=== PATIENT | female | born 1965 | race Caucasian/White ===

== ENCOUNTER 2020-02-17 16:16 | Inpatient (IN) | payer MEDICAID ==
[~2020-02-17] VITALS: Ht 154.9 cm; Wt 91.3 kg
[~2020-02-17 16:16] MED LIST: MORP20CA18 PO; OXYC10TA59 PO
[2020-02-17 16:59] LABS: BASOPHILS % (AUTO) 0.5 % (0.0-2.0); EOSINOPHILS % (AUTO) 1.7 % (1.0-6.0); HEMATOCRIT 42.8 % (36-46); HEMOGLOBIN 14.4 g/dL (12.0-16.0); LYMPHOCYTES # (AUTO) 2.8 K/uL (1.0-4.8); LYMPHOCYTES % (AUTO) 39.9 % (22.0-44.0); MEAN CORPUSCULAR HGB CONC 33.6 G/dL (31.0-37.0); MEAN CORPUSCULAR VOLUME 89 fL (80-100); MONOCYTES # (AUTO) 0.5 K/uL (0.1-1.0); MONOCYTES % (AUTO) 7.1 % (2.0-9.0); NEUTROPHILS # (AUTO) 3.6 K/uL (1.8-7.7); NEUTROPHILS % (AUTO) 50.8 % (40.0-70.0); PLATELET COUNT (AUTO) 138 K/uL (150-450); RED BLOOD CELL COUNT(AUTO) 4.79 MIL/uL (4.00-5.20); RED CELL DISTRIBUTION WIDTH 13.4 % (11.5-14.5)
[2020-02-17 17:07] LABS: AMPHET/METH SCREEN,URINE NEGATIVE (NEGATIVE); BARBITURATE SCREEN, URINE NEGATIVE (NEGATIVE); BENZODIAZEPINES SCREEN,URINE NEGATIVE (NEGATIVE); CANNABINOID SCREEN,URINE NEGATIVE (NEGATIVE); COCAINE SCREEN,URINE NEGATIVE (NEGATIVE); METHADONE SCREEN, URINE NEGATIVE (NEGATIVE); OPIATE SCREEN,URINE NEGATIVE (NEGATIVE)
[2020-02-17 17:08] LABS: PHENCYCLIDINE SCREEN,URINE NEGATIVE (NEGATIVE)
[2020-02-17 17:12] LABS: ANION GAP 3 mmol/L (8-16); CALCIUM, TOTAL 9.1 mg/dL (8.8-10.5); CARBON DIOXIDE 33 mmol/L (22-29); CHLORIDE 104 mmol/L (98-107); CREATININE 0.76 mg/dL (0.60-1.30); GLOMERULAR FILTR. RATE CALC > 60 mL/min (>60); GLUCOSE,RANDOM 89 mg/dL (70-110); POTASSIUM 3.5 mmol/L (3.5-5.1); SODIUM SERUM 140 mmol/L (136-145); UREA NITROGEN, BLOOD 13 mg/dL (7-18)
[2020-02-17 17:18] LABS: ALANINE AMINOTRANSFERASE 19 U/L (12-78); ALKALINE PHOSPHATASE 88 U/L (46-116); ASPARTATE AMINOTRANSFERASE 16 U/L (15-37); BILIRUBIN,TOTAL 0.6 mg/dL (0.1-1.0); TOTAL PROTEIN, SERUM 8.2 g/dL (6.4-8.2)
[2020-02-17 17:53] LABS: THYROID STIMULATING HORMONE 10.56 uIU/mL (0.36-3.74)
[2020-02-17] MEDS ORDERED: ZOLPIDEM TARTRATE 10 MG TABLET PO PRN (19:45)
[2020-02-17] MEDS ORDERED: LORazepam 2 MG TABLET PO PRN (19:45)
[2020-02-17] MEDS ORDERED: HALOPERIDOL 5 MG TABLET PO PRN (19:45)
[2020-02-18 00:50] VITALS: BP 110/66
[2020-02-18 07:42] LABS: CHOL/HDL RATIO 4.1 (3.9-5.7)
[2020-02-18 08:00] VITALS: BP 100/62
[2020-02-18] MEDS ORDERED: IBUPROFEN 400 MG TABLET PO PRN (09:30)
[2020-02-18] MEDS ORDERED: LOPERAMIDE HCL 2 MG CAPSULE PO PRN (09:30)
[2020-02-18] MEDS ORDERED: ACETAMINOPHEN 325 MG TABLET PO PRN (09:30)
[2020-02-18] MEDS ORDERED: PETROLATUM,WHITE 28 GM JELLY TP PRN (09:30)
[2020-02-18] MEDS ORDERED: NICOTINE 14 MG/24 HOUR PATCH TD PRN (09:30)
[2020-02-18] MEDS ORDERED: DOCUSATE SODIUM 100 MG CAPSULE PO PRN (09:30)
[2020-02-18] MEDS ORDERED: GuaiFENesin/D-METHORPHAN [SUGAR-FREE] 200-20MG/10 ML SYRUP UDCUP PO PRN (09:30)
[2020-02-18] MEDS ORDERED: ALBUTEROL SULFATE HFA 90 MCG/PUFF 8 GM INHALER IH PRN (09:30)
[2020-02-18] MEDS ORDERED: MAGNESIUM HYDROXIDE SUSPENSION 30 ML UDCUP PO PRN (09:30)
[2020-02-18] MEDS ORDERED: ONDANSETRON HCL 4 MG TABLET PO PRN (09:30)
[2020-02-18] MEDS ORDERED: MAG HYDROX/AL HYDROX/SIMETH ES 30 ML SUSPENSION UDCUP PO PRN (09:30)
[2020-02-18] MEDS ORDERED: CloNIDine HCL 0.1 MG TABLET PO PRN (09:30)
[2020-02-18 17:53] VITALS: BP 94/61
[2020-02-18] MEDS: SIMVASTATIN 10 MG TABLET PO SCH (20:32)
[2020-02-18] MEDS: BusPIRone HCL 10 MG TABLET PO SCH (20:32)
[2020-02-18] MEDS: OLANZapine 5 MG TABLET PO SCH (20:32)
[2020-02-19] MEDS: LEVOTHYROXINE SODIUM 25 MCG TABLET PO SCH (06:18)
[2020-02-19 09:42] VITALS: BP 99/56
[2020-02-19] MEDS: BusPIRone HCL 10 MG TABLET PO SCH ×2 (09:54→20:18)
[2020-02-19] MEDS: FLUoxetine HCL 20 MG CAPSULE PO SCH (09:55)
[2020-02-19] MEDS: OLANZapine 5 MG TABLET PO SCH ×2 (09:55→20:18)
[2020-02-19 16:29] VITALS: BP 102/72
[2020-02-19] MEDS: SIMVASTATIN 10 MG TABLET PO SCH (20:18)
[2020-02-20] MEDS: LEVOTHYROXINE SODIUM 25 MCG TABLET PO SCH (06:37)
[2020-02-20] MEDS: FLUoxetine HCL 20 MG CAPSULE PO SCH (09:02)
[2020-02-20] MEDS: BusPIRone HCL 10 MG TABLET PO SCH ×2 (09:02→20:43)
[2020-02-20] MEDS: OLANZapine 5 MG TABLET PO SCH ×2 (09:02→20:43)
[2020-02-20 09:23] VITALS: BP 102/58
[2020-02-20 16:27] VITALS: BP 99/57
[2020-02-20] MEDS: SIMVASTATIN 10 MG TABLET PO SCH (20:43)
[2020-02-21] MEDS: LEVOTHYROXINE SODIUM 25 MCG TABLET PO SCH (06:08)
[2020-02-21 08:50] VITALS: BP 106/65
[2020-02-21] MEDS: BusPIRone HCL 10 MG TABLET PO SCH ×2 (09:47→21:04)
[2020-02-21] MEDS: OLANZapine 5 MG TABLET PO SCH ×2 (09:48→21:04)
[2020-02-21] MEDS: FLUoxetine HCL 20 MG CAPSULE PO SCH (09:48)
[2020-02-21 17:15] VITALS: BP 116/63
[2020-02-21] MEDS: SIMVASTATIN 10 MG TABLET PO SCH (21:04)
[2020-02-22] MEDS: LEVOTHYROXINE SODIUM 25 MCG TABLET PO SCH (06:43)
[2020-02-22] MEDS: BusPIRone HCL 10 MG TABLET PO SCH (09:14)
[2020-02-22] MEDS: OLANZapine 5 MG TABLET PO SCH (09:15)
[2020-02-22] MEDS: FLUoxetine HCL 20 MG CAPSULE PO SCH (09:16)
[2020-02-22 09:25] VITALS: BP 103/60
[2020-02-22] MEDS ORDERED: FLUO-191 PO (10:03)
[2020-02-22] MEDS ORDERED: BUSP10TA23 PO (10:03)
[2020-02-22] MEDS ORDERED: OLAN5TAB27 PO (10:03)
[2020-02-22] MEDS ORDERED: LEVO25TA9 PO (12:21)
[2020-02-22] MEDS ORDERED: SIMV5TAB59 PO (12:22)
[2020-02-22] MEDS ORDERED: NITROGLYCERIN 0.4 MG SUBLINGUAL TABLET #25 SL ONE (13:00)
[2020-02-22 17:56] VITALS: BP 114/72
== END 2020-02-22 17:40 | disposition home or self-care (01) | DRG 885 ==
LOC: EMS 16:18 → 3EI 19:33
DX: F25.1 Schizoaffective disorder, depressive type (principal); R45.851 Suicidal ideations; E03.9 Hypothyroidism, unspecified; E78.5 Hyperlipidemia, unspecified; F41.0 Panic disorder [episodic paroxysmal anxiety]; G56.03 Carpal tunnel syndrome, bilateral upper limbs; J30.2 Other seasonal allergic rhinitis; M79.7 Fibromyalgia; Z79.899 Other long term (current) drug therapy; Z91.5 Personal history of self-harm; Z79.01 Long term (current) use of anticoagulants
CPT/HCPCS: 84439; 84443; G0480; Q0162